=== PATIENT | female | born 1975 | race Caucasian/White ===

== ENCOUNTER → 2016-05-03 | Outpatient (CLI) | payer OTHER ==
--- NOTE | 2016-05-03 15:49 | MAMMOGRAPHY REPORT ---
BILATERAL FIRST EVER DIGITAL SCREENING MAMMOGRAM TOMOSYNTHESIS WITH CAD: 05/03/2016 CLINICAL HISTORY: Routine screening. Baseline exam. TECHNIQUE: Bilateral breast tomosynthesis in addition to standard 2D mammography was performed. Cur rent study was also evaluated with a Computer Aided Detection (CAD) system. COMPARISON: No prior exams were available for comparison. BREAST COMPOSITION: There are scattered areas of fibroglandular density in both breasts. FINDINGS: No suspicious mass, architectural distortion or cluster of microcalcifications is seen. IMPRESSION: ACR BI-RADS CATEGORY 1: NEGATIVE There is no mammographic evidence of malignancy. A 1 year screening mammogram is recommended. The p atient will receive written notification of the results. Approximately 10% of breast cancers are not detected with mammography. A negative mammographic repor t should not delay biopsy if a clinically suggestive mass is present. Kina Mccord M.D. ay/:05/03/2016 15:43:19 Coiled Tubing Supervisor: Donna ESPINOSA)([address]), [facility] letter sent: Normal 1/2 BI-RADS Code: ACR BI-RADS Category 1: Negative
== END | disposition home or self-care (01) ==
LOC: C.MAMM 08:17
PROVIDERS: ATTEND Family Medicine
DX: Z12.31 Encounter for screening mammogram for malignant neoplasm of breast (principal)

== ENCOUNTER → 2017-05-04 | Outpatient (CLI) | payer OTHER ==
--- NOTE | 2017-05-04 14:59 | MAMMOGRAPHY REPORT ---
BILATERAL DIGITAL SCREENING MAMMOGRAM TOMOSYNTHESIS WITH CAD: 05/04/2017 CLINICAL HISTORY: Routine screening. TECHNIQUE: Breast tomosynthesis in addition to standard 2D mammography was performed. Current study was also evaluated with a Computer Aided Detection (CAD) system. COMPARISON: Comparison is made to exam dated: 05/03/2016 mammogram - [facility]. BREAST COMPOSITION: There are scattered areas of fibroglandular density in both breasts. FINDINGS: No suspicious masses, calcifications, or areas of architectural distortion are noted in ei ther breast. There has been no significant interval change compared to prior exams. Nodular asymmetr y in the left inferior breast on the MLO view is stable compared to the 2017 exam and has the appeara nce of normal overlapping vessels on the tomosynthesis images. IMPRESSION: ACR BI-RADS CATEGORY 2: BENIGN There is no mammographic evidence of malignancy. A 1 year screening mammogram is recommended. The pa tient will receive written notification of the results. Approximately 10% of breast cancers are not detected with mammography. A negative mammographic report should not delay biopsy if a clinically suggestive mass is present. Lesly Funes M.D. ah/:05/04/2017 10:09:36 Silk Top Hat Body Maker: hCaz ESPINOSA)([address]), [facility] letter sent: Normal 1/2 BI-RADS Code: ACR BI-RADS Category 2: Benign
== END | disposition home or self-care (01) ==
LOC: C.MAMM 08:05
PROVIDERS: ATTEND Physician Assistant
DX: Z12.31 Encounter for screening mammogram for malignant neoplasm of breast (principal)

== ENCOUNTER 2019-04-27 08:23 | Observation (INO) ==
--- NOTE | 2019-03-28 12:04 | PAT Medication Instructions ---
Medication Instructions Date of Service March 28, 2019 Home Medications cetirizine 10 mg tablet 10 mg PO HS fluticasone propionate 50 mcg/actuation nasal spray,suspension 2 spray INTRANASAL UD PRN ibuprofen 200 mg tablet 400 mg PO UD PRN unauhlm-cmxmaodqzsacl-kpdiyksz [Excedrin Migraine] 2 tab PO Q6H PRN ASK your surgeon for instructions ibuprofen 200 mg tablet 400 mg PO UD PRN dxzmfyr-llbgeyfkmcxpa-mitegukz [Excedrin Migraine] 2 tab PO Q6H PRN Take morning of surgery With a small sip of water, OTHERWISE NOTHING TO EAT OR DRINK AFTER MIDNIGHT: fluticasone propionate 50 mcg/actuation nasal spray,suspension 2 spray INTRANASAL UD PRN (if needed) Take evening before surgery cetirizine 10 mg tablet 10 mg PO HS fluticasone propionate 50 mcg/actuation nasal spray,suspension 2 spray INTRANASAL UD PRN (if needed) Other Notes If you have any questions please call us at [phone] or [phone] or [phone] or [phone]
--- NOTE | 2019-04-02 11:18 | Anesthesiology Consultation ---
Date of Service April 02, 2019 Assessment & Plan (1) Encounter for pre-operative examination: - Check test AM DOS Chart Review Chart Review: Acceptable Risk for Surgery and Patient seen in Pre Admission Te sting Teaching & Discussion Pre-Anesthesia Teaching/Discussion Notes: Instructed NPO after midnight before surgery,except medications with 15 cc of water. Medication instructions provided according to the PAT guidelines. History Surgery Operation Date: 04/27/19 10:20 Proposed Procedures p Robotic Total Laparoscopic Hysterectomy - Bailee Isbell MD Height/Weight Height: 5 ft 10 in Weight: 143.4 kg Allergies Allergy/AdvReac Type Severity Reaction Status Date / Time gold Au 198 Allergy Unknown "soreness" Verified 04/02/19 10:21 with jewlery amoxicillin AdvReac nausea Verified 04/02/19 10:21 clavulanic acid AdvReac nausea Verified 04/02/19 10:21 Augmentin TABS AdvReac Nausea Uncoded 03/28/19 12:04 Medications Home Medications Medication Instructions Recorded Confirmed Last Taken cetirizine 10 mg tablet 10 mg PO HS tab 11/28/18 04/02/19 Unknown fluticasone propionate 50 2 spray INTRANASAL UD PRN gm 11/28/18 04/02/19 Unknown mcg/actuation nasal spray,suspension ibuprofen 200 mg tablet 400 mg PO UD PRN tab 11/28/18 04/02/19 Unknown bmkoclv-eshqdqhzmknsu-xsbvkdvd 2 tab PO Q6H PRN 03/21/19 04/02/19 Unknown [Excedrin Migraine] Past Medical History Medical History Menorrhagia Migraine hx Morbid obesity Uterine leiomyoma Exercise / Class Metabolic Activity III < 4 Walking/Shop/Light housework Past Family History Family History Grandmother (Maternal) Diabetes Other Breast cancer Hypertension Malignant neoplasm of skin Osteoporosis Past Surgical History Surgical History S/P knee surgery LEFT MASS REMOVAL CYST-BENIGN S/P wisdom tooth extraction Past Anesthesia History No Hx of Anesthesia Complications and No Family Hx of Anesthesia Complications History of PONV No Hx of PONV and No Hx of Motion Sickness Social History Smoking Status: Never smoker Do You Dip or Chew Tobacco: No Hx Alcohol Use: Yes alcohol intake frequency: holidays/special occasions only Hx Substance Use: No Review of Systems Rare reflux. Patient denies chest pain, shortness of breath, cough, wheezing, palpitations. Physical Exam Vital Signs VITALS BP 148/72 P 87 TEMP 98.0 SP02 98%RA RESP 16 PHYSICAL Full neck and c-spine range of motion. Full TMJ range of motion. TMD 4 finger breaths Mallampati Score 2 Dentition: intact, crown on molar Lungs: clear throughout to auscultation Cardiac: regular rate and rhythm, no murmurs noted Spine: normal Carotid arteries: negative bruit Extremities: no edema Short, thick neck Testing Laboratory Results 04/02/19 11:49 04/02/19 11:49 Blood Type O Positive 04/02/19 11:49 Antibody Screen NEGATIVE 04/02/19 11:49 Electrocardiogram Date: 04/02/19 Findings: + NSR @ (27)
[2019-04-02 13:05] LABS: Basophils # (auto) 0.06 K/uL (0-0.2); Basophils % (auto) 0.9 %; Eosinophils # (auto) 0.24 K/uL (0-0.5); Eosinophils % (auto) 3.8 %; Hematocrit (blood only) 37.6 % (37-47); Hemoglobin 11.8 g/dL (12.0-16.0); Immature Granulocytes # (auto) 0.03 K/uL (0.00-0.02); Immature Granulocytes % (auto) 0.5 %; Lymphocytes # (auto) 1.51 K/uL (1.2-3.4); Lymphocytes % (auto) 23.9 %; Mean Corpuscular Hemoglobin 24.8 pg (25-34); Mean Corpuscular Hgb Conc 31.4 g/dL (32-36); Mean Platelet Volume 11.4 fL (7.4-10.4); Monocytes # (auto) 0.51 K/uL (0.11-0.59); Monocytes % (auto) 8.1 %; Neutrophils # (auto) 3.97 K/uL (1.4-6.5); Neutrophils % (auto) 62.8 %; Platelet Count 195 K/uL (130-400); RDW Coefficient of Variation 15.5 % (11.5-14.5); RDW Standard Deviation 44.5 fL (36.4-46.3); Red Blood Count 4.76 M/uL (4.2-5.4); White Blood Count 6.32 K/uL (4.8-10.8)
[2019-04-02 14:09] LABS: BUN Creatinine Ratio 10.3 (10-20); Calcium 9.2 mg/dl (8.5-10.1); Creatinine Clr Calc Pharmacy 129.4 ml/min; Est GFR (African American) 93.9
[~2019-04-27 08:23] MED LIST: CEFAZOLIN 3000MG 65 ML IV SCH; LACTATED RINGER'S 1,000 ML IV SCH; LR 15ML/HR IV SCH
--- NOTE | 2019-04-27 08:55 | History & Physical Bridge Note ---
Date of Service April 27, 2019 History & Physical Bridge Note I have examined the patient, reviewed the History & Physical and in the interval since the performance of the History & Physical I have noted the following changes of clinical significance: no changes noted
[2019-04-27] MEDS ORDERED: fentaNYL citrate 100 MCG/2 ML VIAL ONE ×2 (09:19→12:34)
[2019-04-27] MEDS ORDERED: MIDAZOLAM HCL 1 MG/ML 2ML VIAL ONE (09:19)
[2019-04-27] MEDS ORDERED: VASOPRESSIN 20 UNIT/ML VIAL ONE (09:44)
[2019-04-27] MEDS ORDERED: SODIUM CHLORIDE 0.9% PF 50 ML VIAL ONE (09:44)
[2019-04-27] MEDS ORDERED: METHYLENE BLUE 0.5% 10 ML VIAL ONE (09:45)
[2019-04-27] MEDS ORDERED: ACETAMINOPHEN 1000 MG/100 ML IV IV ONE (09:52)
[2019-04-27] MEDS ORDERED: ATROPINE SULFATE 0.1 MG/ML 10ML SYR IV PRN (10:08)
[2019-04-27] MEDS ORDERED: PROMETHAZINE HCL 6.25 MG in SODIUM CHLORIDE 0.9% 50 ML IV PRN (10:08)
[2019-04-27] MEDS ORDERED: ONDANSETRON INJ 2 MG/ML 2 ML VIAL IV PRN ×2 (10:08→14:20)
[2019-04-27] MEDS ORDERED: ePHEDrine sulfate 50 MG/ML AMP IV PRN (10:08)
[2019-04-27] MEDS ORDERED: HYDROmorphone INJ 2 MG/ML SYR/VIAL ONE (10:41)
[2019-04-27] MEDS ORDERED: PROPOFOL IV EMULSION 10 MG/ML 20 ML VIAL IV ONE (11:07)
[2019-04-27] MEDS ORDERED: ROCURONIUM BROMIDE 10 MG/ML 5 ML VIAL ONE (11:07)
[2019-04-27] MEDS ORDERED: LIDOCAINE HCL 2% 2 ML VIAL/AMP(20MG/ML) INFIL ONE (11:07)
[2019-04-27] MEDS ORDERED: DEXAMETHASONE SOD INJ 4 MG/ML VIAL ONE (11:07)
[2019-04-27] MEDS ORDERED: ONDANSETRON INJ 2 MG/ML 2 ML VIAL ONE ×2 (11:07→14:07)
[2019-04-27] MEDS ORDERED: CEFAZOLIN 250 MG/ML 1 GM VIAL ONE (14:02)
[2019-04-27] MEDS ORDERED: CEFAZOLIN 3,000 MG in DEXTROSE 5% 50 ML IV STA (14:04)
[2019-04-27] MEDS ORDERED: KETOROLAC 30 MG/ML VIAL ONE (14:08)
[2019-04-27] MEDS ORDERED: KETOROLAC 30 MG/ML VIAL IV PRN (14:20)
[2019-04-27] MEDS ORDERED: SIMETHICONE 80 MG CHEW PO PRN (14:20)
[2019-04-27] MEDS ORDERED: MAGNESIUM HYDROXIDE SUSP 30 ML UDC PO PRN (14:20)
[2019-04-27] MEDS ORDERED: PROMETHAZINE HCL 12.5 MG in SODIUM CHLORIDE 0.9% 50 ML IV PRN (14:20)
[2019-04-27] MEDS ORDERED: MEPERIDINE HCL 50 MG/ML CARP IV PRN (14:20)
[2019-04-27] MEDS ORDERED: OXYCODONE/ACETAMINOPHEN 5mg/325mg TAB PO PRN (14:20)
[2019-04-27] MEDS ORDERED: MEPERIDINE HCL 25 MG/ML CARP IV PRN (14:20)
[2019-04-27] MEDS ORDERED: ACETAMINOPHEN 325 MG TAB PO PRN (14:20)
[2019-04-27] MEDS ORDERED: LACTATED RINGER'S 1,000 ML IV SCH (14:30)
--- NOTE | 2019-04-27 14:33 | Operative Report ---
PG Post Operative Report Pre & Post Diagnosis Operation Date: 04/27/19 09:50 Pre-Op Diagnosis: Symptomatic Uterine Leiomyoma Post-Op Diagnosis: Symptomatic Uterine Leiomyoma I identified the patient and participated in the time-out.: Yes Procedure Operation Date: 04/27/19 09:50 Actual Procedures p Robotic-assisted Total Laparoscopic Hysterectomy with Excite procedure, bilateral salpingectomy, cystoscopy(Not Applicable) - Bailee Isbell MD Surgeon Bailee Isbell MD Batch Unit Treater MD Jase and MD Yury Estimated Blood Loss 50 Findings Consistent with Post-Op Diagnosis Specimens Surgically deconstructed myomatous uterus, cervix, bilateral fallopian tubes Anesthesia Type General Complications none Disposition Accompanied Patient To Recovery: Yes Disposition: Recovery Room Description of Procedure The patient was brought to the operating room and placed on the table in dorsal lithotomy position with yellofin stirrups, prepped and draped in standard sterile fashion, and a hard time out was taken prior to proceeding. The bladder was emptied via placement of morrow catheter. A [employer] uterine manipulator was placed in the usual manner. Attention was then turned to the abdomen where op tical entry was made above the umbilicus without complication. The abdomen was insufflated and the patient was placed in steep Trendelenburg. Under direct visualization, two per side right and left lower quadrant ports were placed without complication. Survey of the abdomen revealed grossly enlarged and distorted fibroid uterus, normal tubes and ovaries bilaterally, and some peritoneal windows and deposits of what may be endometriosis. The robot was then docked and surgery proceeded with the surgeon at the console. The ureter was identified on each side and traced along its course into the pelvis. Each fallopian tube in turn was elevated, dissected off the mesosalpinx and amputated, then removed via the tax accounting assistant port. Each utero-ovarian ligament was ligated and then divided. Each round ligament was ligated and then divided. The anterior leaflets of the broad ligament were dissected to create a bladder flap which was gently mobilized downward below the colpotomy cup ridge. Each uterine artery was skeletonized, ligated, and then divided. Circumferential colpotomy was then completed following the colpotomy cup guide. The cervix and uterus were then deposited in the LUQ for later retrieval. The vaginal cuff was then closed using V-Paul suture in the typical running non-locked fashion. The needle was retrieved through a trocar, and suction/irrigation was then used to r emove any debris and ensure good hemostasis at all working sites. After administration of IV Methylene Blue dye, cystoscopy was then utilized to examine the bladder dome which was free of suture or injury. The ureteral orifices were observed until a good strong jet of blue stained urine was seen from each. The bladder was then drained by placement of a new morrow. The robot was then undocked. The EXCITE portion of the procedure was done by bagging the specimen in a large laparoscopic endocatch bag and brought to the umbilical incision. The umbilical incision was extended horizontally at the skin to approx 2" and vertically at the fascia to allow placement of an Chandan retractor into the endocatch bag, after which the EXCITE technique was used to remove the uterus and cervix in small portions. Several times during the process, observation with a 10mm laparoscope was performed to ensure free space all around the bag and avoid any intra-abdominal injury. Once the full specimen was removed, the Chandan and endocatch were removed. The fascial defect was repaired by grasping with shi clamps and suturing with UR-6 vicryl. The remaining abdominal trocar sites were closed using a UR6 at the LUQ fascia and 4-0 monocryl was then used at all of the skin incisions. A dermabond dressing was applied to each site. A final vaginal exam ensured no materials were present in the vagina and the cuff was intact. The morrow was removed. The patient was then transferred in stable condition to the recovery room. I attest to the content of the Intraoperative Record and any orders documented therein. Any exceptions are noted below.
--- NOTE | 2019-04-27 14:52 | Anesthesiology Progress Note ---
Date of Service April 27, 2019 Anesthesia Post Procedure Vital Signs Vital Signs: Temp Pulse Resp BP Pulse Ox 04/27/19 09:04 36.7 C 91 H 18 164/91 H 97 Transfer of Care Handoff Completed per policy Notes Mental Status: alert / awake / arousable Patient Amnestic to Procedure: Yes Nausea / Vomiting: adequately controlled Pain: adequately controlled Airway Patency, RR, SpO2: stable & adequate BP & HR: stable & adequate Hydration State: stable & adequate Anesthetic Complications: no major complications apparent
[2019-04-27] MEDS: fentaNYL citrate 100 MCG/2 ML VIAL IV PRN ×2 (15:06→15:20)
--- NOTE | 2019-04-27 16:13 | Anesthesiology Progress Note ---
Date of Service April 27, 2019 Anesthesia Post Procedure Vital Signs Vital Signs: Temp Pulse Pulse Resp BP Pulse Ox 04/27/19 15:35 36.6 C 70 12 141/78 H 97 04/27/19 15:25 67 12 133/70 97 04/27/19 15:15 68 14 130/78 97 04/27/19 15:05 63 12 134/75 96 04/27/19 14:55 69 13 142/84 H 96 04/27/19 14:45 70 15 149/76 H 97 04/27/19 14:38 36.1 C L 87 13 150/85 H 97 04/27/19 09:04 36.7 C 91 H 18 164/91 H 97 Pain Intensity Abdomen: Pain Intensity: 5 Transfer of Care Handoff Completed per policy Notes Mental Status: alert / awake / arousable and participated in evaluation Patient Amnestic to Procedure: Yes Nausea / Vomiting: adequately controlled Pain: adequately controlled Airway Patency, RR, SpO2: stable & adequate BP & HR: stable & adequate Hydration State: stable & adequate Anesthetic Complications: no major complications apparent and Pt Satisfied with anesthetic care
[2019-04-27] MEDS: IBUPROFEN 600 MG TAB PO PRN ×2 (18:14→21:58)
[2019-04-27] MEDS: OXYCODONE/ACETAMINOPHEN 5mg/325mg TAB PO PRN ×2 (18:15→21:58)
[2019-04-27 18:26] LABS: Hematocrit (blood only) 36.7 % (37-47); Hemoglobin 11.8 g/dL (12.0-16.0)
[2019-04-27] MEDS ORDERED: PERCOCET 5/325MG HOMEPACK PO ONE (20:00)
[2019-04-27] MEDS ORDERED: DOCUSATE SODIUM 100 MG CAP PO SCH (21:00)
--- NOTE | 2019-04-30 03:05 | Discharge Summary ---
Date of Service April 30, 2019 Discharge Data Procedures Performed Operation Date: 04/27/19 09:50 Actual Procedures p Robotic-assisted Total Laparoscopic Hysterectomy with Excite procedure, bilateral salpingectomy, cystoscopy(Not Applicable) - Bailee Isbell MD Hospital Course (1) H/O: hysterectomy: Robotic hysterectomy done as planned, with EXCITE procedure and slight enlarged supraumbilical incision for that purpose. Patient tolerated procedure well and met post operative milestones for discharge on POD#0. She was discharged home in good condition with the usual #20 percocet and instructions for office f/u in 2 and 6 weeks post op.
== END 2019-04-27 22:05 | disposition home or self-care (01) ==
LOC: ASU 08:23 → 4N 08:23